=== PATIENT | female | born 1950 | race Caucasian/White ===

== ENCOUNTER → 2020-08-07 09:22 | Outpatient (CLI) | payer MEDICARE, OTHER, SELFPAY ==
[2020-08-07 13:00] LABS: Coronavirus 19 IgG Antibody Negative (Negative); Coronavirus 19 IgM Antibody Negative (Negative)
== END ==
PROVIDERS: Visit Provider Internal Medicine Gastroenterology
DX: Z01.818 Encounter for other preprocedural examination (principal); Z12.11 Encounter for screening for malignant neoplasm of colon
CPT/HCPCS: 36415; 86328

== ENCOUNTER 2020-08-08 08:54 | Day surgery (SDC) | payer MEDICARE, OTHER, SELFPAY ==
[2020-08-01 10:05] VITALS: BMI 21.7
[2020-08-08] VITALS (9 sets, daily range): BP systolic 77–136; BP diastolic 42–86; PULSE 63–86; RESP 16–20; TEMP 36.1–36.7; O2SAT 96–100
--- NOTE | 2020-08-08 10:17 | P.PN_ITS ---
[facility] Anesthesia Checklist - Patient Identification Patient Identification: Arm Band, Verbal (Name & ) - Structural Data Admitted From: Home Planned Operative Procedure/s: Colonoscopy Consent for Planned Operative Procedure(s) Verified: Yes Verified Documents: Surgical Consent, History and Physical - Chart Verification Results Verified: None - Additional verifications Anesthesia Reactions: No - Airway Assessment C-Spine Mobility Assessed: Yes TMJ Mobility Assessed: Yes Dentition: Good Dentition - Neurological Assessment Level of Consciousness: Awake, Alert, Appropriate, Follows Commands Hx Seizures: No Numbness or tingling in extremities: No - Anesthesia Plan Anesthesia Risk discussed: Yes Anesthesia Plan: Verified ASA Class: I Anesthesia Type: MAC [facility] History I have reviewed the patient's past medical history: Yes Medical History: Denies:: Cancer, Diabetes Mellitus Type 1, Diabetes Mellitus Type 2, Internal Pacemaker, MRSA, Seizures *Have you ever received a pneumonia vaccine?: No *Have you received a flu vaccine this season?: No Anesthesia experience/problems:: None Laterality Cases: Bilateral: Tonsillectomy Other Surgeries: Yes: Tubal Ligation. No: Pacemaker Amputation: No Fractures: No - *Social History Last grade of school completed: Advanced degree Smoking Status: Never smoker Alcohol Intake: current Alcohol Intake Frequency:: holidays/special occasions only Substance Use Type: denies use *Occupational Status:: employed, retired Housing: house Household Members: spouse *Travel in the last 8 weeks: None Family Hx:: Other (NA)
--- NOTE | 2020-08-08 10:47 | P.PCN_ITS ---
[facility] Procedure Note Procedure Note:: Colonoscopy Procedure Report: Colonoscopy with cold snare polypectomy Endoscopist: Yves Sousa II, MD Referring physician: Jean Marie Dueñas MD Date of Procedure: August 08, 2020 Equipment: Olympus 180 variable stiffness pediatric colonoscope Sedation: MAC sedation Indication: Mrs. Mills is a 70-year-old female who is here for follow-up high risk screening/surveillance colonoscopy. She does state that her maternal grandmother and all of her mother's siblings (patient's paternal uncles and aunts) had colon cancer. The patient has had 5 or 6 prior colonoscopies and her last colonoscopy was July 2015 at which time 2 diminutive polyps (tubular adenoma x2) were removed. She reports no abdominal pain, weight loss, change in her bowel habits or rectal bleeding. She does have a wheat intolerance. Procedure: Prior to the procedure, a history and physical exam was performed, and patient's medications and allergies were reviewed. The risks, benefits and alternatives of the sedation and procedure were discussed with the patient. All questions were answered and informed consent was obtained. The patient was brought to the procedure room. Patient identification and proposed procedure were verified by the physician and the nurse. The patient was placed in a left lateral decubitus position and the scope was passed under direct vision. Throughout the procedure, the patient's blood pressure, pulse, and oxygen saturations were monitored continuously. The colonoscopy was accomplished without difficulty. The patient tolerated the procedure well. Findings: On digital rectal examination there was normal rectal tone. There were no external hemorrhoids. The colonoscope was introduced through the anal canal to the rectum and advanced to the cecum. The ileocecal valve and appendiceal orifice were identified. The scope was advanced a short distance into the ileum which appeared grossly normal. The scope was then withdrawn into the colon. There was mild extrinsic compression at the appendix. The remainder of the cecum was normal. There were 2 diminutive polyps in the ascending colon (both 3 mm polyps) which were removed via cold snare polypectomy. The remainder of the transverse, descending, sigmoid and rectum were normal. Upon retroflexion within the rectum there were grade 2 internal hemorrhoids.The preparation was excellent throughout with [place] Preparation Score of 9. The cecal time was 12 minutes. Impression: 1. Diminutive colonic polyps x2 2. Grade 2 internal hemorrhoids Plan: Based upon the patient's family history and history of colon polyps, I would continue surveillance at a 5-year interval. I would encourage bulk fiber supplementation on a long-term daily maintenance basis.
== END 2020-08-08 11:45 | disposition home or self-care (01) ==
LOC: OUTP 08:56
PROVIDERS: PCP Internal Medicine; Visit Provider Internal Medicine Gastroenterology
PROC: 0DJD8ZZ Inspection of Lower Intestinal Tract, Via Natural or Artificial Opening Endoscopic (ICD-10-PCS; CPT 45378; principal; 2020-08-08 10:00)
DX: Z12.11 Encounter for screening for malignant neoplasm of colon (principal); Z86.010 Personal history of colon polyps; K63.5 Polyp of colon; K64.1 Second degree hemorrhoids; Z90.89 Acquired absence of other organs; Z79.890 Hormone replacement therapy
CPT/HCPCS: 45385; 88305

== ENCOUNTER → 2022-06-08 10:37 | Outpatient (CLI) | payer MEDICARE, OTHER, SELFPAY ==
--- NOTE | 2022-06-08 10:43 | MM_ITS ---
PROCEDURE INFORMATION: Exam: Bilateral Screening 3D Mammography Exam date and time: 06/08/2022 10:37 AM Age: 72 years old Clinical indication: Screening examination TECHNIQUE: Imaging protocol: Bilateral Screening tomosynthesis and 2D mammography including computer-aided detection (CAD) when performed. COMPARISON: MY Digital Screen BILAT 05/27/2021 3:10 PM FINDINGS: MAMMOGRAPHY: Breast composition: The breast tissue is extremely dense, which lowers the sensitivity of mammography. Mass: None. Architectural distortion: No new or suspicious architectural distortion. Calcifications: Stable benign-appearing calcifications are present. No new or suspicious cluster of microcalcifications have developed. Asymmetric density: No new or suspicious asymmetric density is present Skin thickening: None. Axillary adenopathy: None. IMPRESSION: No mammographic evidence of malignancy. Recommend annual screening mammography unless otherwise clinically indicated. ASSESSMENT: BI-RADS category 2: Benign
== END ==
PROVIDERS: PCP Internal Medicine; Visit Provider Obstetrics & Gynecology
DX: Z12.31 Encounter for screening mammogram for malignant neoplasm of breast (principal)
CPT/HCPCS: 77063; 77067

== ENCOUNTER → 2022-11-23 14:54 | Outpatient (CLI) | payer MEDICARE, OTHER, SELFPAY | PROVIDERS: PCP Internal Medicine; Visit Provider Internal Medicine | DX: J09.X2 Influenza due to identified novel influenza A virus with other respiratory manifestations (principal) | CPT/HCPCS: 87275; 87276; C9803; U0003; U0005 ==

== ENCOUNTER → 2022-12-20 12:34 | Outpatient (CLI) | payer MEDICARE, OTHER, SELFPAY ==
[2022-12-20 15:20] LABS: Basophils # 0.1 K/mm3 (0-0.2); Basophils % 1.7 % (0.1-2.0); Eosinophils # 0.2 K/mm3 (0.0-0.4); Eosinophils % 3.2 % (0.1-12.0); Hematocrit 48.2 % (37.0-47.0); Hemoglobin 15.2 g/dL (12.2-16.2); Lymphocytes # 1.2 K/mm3 (0.7-4.5); Lymphocytes % 25.7 % (10-50); Mean Corpuscular HGB Conc 31.5 g/dL (31.8-35.4); Mean Corpuscular Hemoglobin 29.9 pg (27.0-31.2); Mean Corpuscular Volume 94.9 fl (81-99); Mean Platelet Volume 8.2 fl (7.4-10.4); Monocytes # 0.3 K/mm3 (0.1-1.0); Monocytes % 7.5 % (1.7-9.3); Neutrophils # 2.8 K/mm3 (1.8-7.8); Platelet Count 235 K/mm3 (142-424); Red Blood Count 5.08 M/mm3 (4.20-5.40); Red Cell Distribution Width 13.7 % (11.5-17.5); White Blood Count 4.6 K/mm3 (4.8-10.8)
[2022-12-20 16:03] LABS: Chloride 102 mmol/L (98-107); Potassium 4.2 mmoL/L (3.5-5.1); Sodium 138 mmol/L (136-145)
[2022-12-20 16:05] LABS: Blood Urea Nitrogen 16 mg/dl (7-17); Estimated Glomerular Filt Rate 82 ml/min (>60); GFR (African American) 100 ML/MIN (>60)
[2022-12-20 16:06] LABS: Alanine Aminotransferase 16 U/L (12-78); Albumin Level 4.6 g/dl (3.5-5.0); Albumin/Globulin Ratio 1.6 (1.1-1.8); Alkaline Phosphatase 65 U/L (38-126); Anion Gap 12.2 mEq/L (5-15); Aspartate Amino Transferase 28 U/L (14-36); Bilirubin,Total 0.6 mg/dl (0.2-1.3); Calcium 9.3 mg/dl (8.4-10.2); Carbon Dioxide 28 mmol/L (22.0-30.0); Chol/HDL Ratio 2.4 (1-3.5); Cholesterol 224 mg/dl (140-200); Globulin 2.9 g/dL (1.3-3.2); Glucose 87 mg/dl (74-100); HDL Cholesterol 92 mg/dl (40-60); Total Protein,Serum 7.5 g/dl (6.3-8.2); Triglycerides 73 mg/dl (30-150); VLDL Cholesterol 15 mg/dL (0-40)
[2022-12-20 16:17] LABS: Direct LDL Cholesterol 91.21 mg/dL (100-129)
== END ==
PROVIDERS: PCP Internal Medicine; Visit Provider Internal Medicine
DX: R53.83 Other fatigue (principal); R05.9 Cough, unspecified; E53.8 Deficiency of other specified B group vitamins; E78.5 Hyperlipidemia, unspecified
CPT/HCPCS: 80053; 80061; 85025

== ENCOUNTER → 2023-08-26 09:13 | Outpatient (CLI) | payer MEDICARE, OTHER, SELFPAY ==
--- NOTE | 2023-08-26 09:26 | XR_ITS ---
FINAL REPORT CLINICAL HISTORY: POST MENOPAUSAL FINDINGS: Using L1-4, the bone mineral density of the spine is 1.061 g/cm2, corresponding to T-score of 0.1. This is within the normal range. Using the left hip, the bone mineral density of the femoral neck is 0.852 g/cm2, corresponding to a T-score of 0.0. This is within the normal range. Using the right hip: The bone mineral density of the femoral neck is 0.754 g/cm2, corresponding to a T-score of -0.9. This is within the normal range. IMPRESSION: Normal bone mineral density of the lumbar spine and hips. NOTE: T-score: Standard deviation compared with peak bone mass of young adult mean. *Following the recommendations of the International Society of Bone densitometry, classification of hip BMD is based on the lower of two T-scores; total hip or femoral neck. Reviewed, Interpreted and Dictated by Maxi Ward III, MD Transcribed by Mayela Samuel Authenticated and [facility]
--- NOTE | 2023-08-26 09:26 | MM_ITS ---
PROCEDURE INFORMATION: Exam: MG Bilateral Screening 3D Mammography Exam date and time: 08/26/2023 9:23 AM Age: 73 years old Clinical indication: Screening examination; No personal or family history of breast cancer TECHNIQUE: Imaging protocol: Bilateral Screening tomosynthesis and 2D mammography including computer-aided detection (CAD) when performed. COMPARISON: 1. MG MM DIG SCREENING MAMM BI W/CAD 06/08/2022 10:37 AM 2. MG MY Digital Screen BILAT 05/27/2021 3:10 PM FINDINGS: MAMMOGRAPHY: Breast composition: The breasts are extremely dense, which lowers the sensitivity of mammography. Mass: None. Architectural distortion: None. Calcifications: No suspicious calcifications. Asymmetric density: None. Skin thickening: None. Axillary adenopathy: None. IMPRESSION: No mammographic evidence of malignancy. Annual screening is recommended unless otherwise clinically indicated. ASSESSMENT: BI-RADS Category 1: Negative
== END ==
PROVIDERS: PCP Internal Medicine; Visit Provider Obstetrics & Gynecology
DX: Z12.31 Encounter for screening mammogram for malignant neoplasm of breast (principal); Z78.0 Asymptomatic menopausal state
CPT/HCPCS: 77063; 77067; 77080

== ENCOUNTER 2024-08-29 16:13 | Outpatient (CLI) | payer MEDICARE, OTHER, SELFPAY ==
--- NOTE | 2024-08-29 16:16 | MM_ITS ---
PROCEDURE INFORMATION: Exam: MG Bilateral Screening 3D Mammography Exam date and time: 08/29/2024 4:01 PM Age: 74 years old Clinical indication: Screening examination TECHNIQUE: Imaging protocol: Bilateral Screening tomosynthesis and 2D mammography including computer-aided detection (CAD) when performed. COMPARISON: 1. MG MM DIG SCREENING MAMM BI W/CAD 08/26/2023 9:23 AM 2. MG MM DIG SCREENING MAMM BI W/CAD 06/08/2022 10:37 AM FINDINGS: MAMMOGRAPHY: Breast composition: The breasts are extremely dense, which lowers the sensitivity of mammography. Mass: None. Architectural distortion: None. Calcifications: No suspicious calcifications. Asymmetric density: None. Skin thickening: None. Axillary adenopathy: None. IMPRESSION: No mammographic evidence of malignancy. Annual screening is recommended unless otherwise clinically indicated. ASSESSMENT: BI-RADS Category 1: Negative.
== END 2024-08-29 23:59 | disposition home or self-care (01) ==
LOC: RAD 16:14
PROVIDERS: PCP Internal Medicine; Visit Provider Nurse Practitioner Family
DX: Z12.31 Encounter for screening mammogram for malignant neoplasm of breast (principal)
CPT/HCPCS: 77063; 77067

== ENCOUNTER 2025-08-08 06:14 | Day surgery (SDC) | payer MEDICARE, OTHER, SELFPAY ==
[2025-07-31 15:14] VITALS: BMI 22.6
--- NOTE | 2025-08-06 11:36 | EXP.HP ---
History of Present Illness *Admission Date: 08/08/25 *Reason for visit:: Personal history of adenomatous colon polyps and family history *History of present illness: Mrs. Mills is a 75-year-old female who is here for screening/surveillance colonoscopy secondary to a personal history of adenomatous colon polyps and family history of colon cancer. The patient did have a colonoscopy with in in July 2015 and had 2 benign polyps (tubular adenomas x 2) which were removed. Her last colonoscopy with in in July 2020 revealed 2 new polyps (tubular adenoma x 1 and small serrated adenoma x 1) which were removed. She has had 6 or 7 prior colonoscopies. She does state that her maternal grandmother and all of her mother's siblings (maternal uncles and aunts) had colon cancer. The examination is deemed medically necessary for screening/surveillance colonoscopy. The patient has been seen, interviewed and examined prior to the procedure by both myself and the anesthesia provider. [facility] Disclaimer: The information contained in this section may have been updated after the patient was seen, as this information can be updated by other users. Medical History Fracture of coccyx Surgical History H/O tubal ligation Hx of tonsillectomy Family History Father Family history of myocardial infarction Mother Family history of diabetes mellitus type II Other Colon cancer Social History (Updated 08/08/25 @ 07:14 by Tessy Lanza RN) Smoking Status: Never smoker alcohol intake: never substance use type: denies use current occupational status: retired Travel in the last 8 weeks?: Inside the [place] household members: spouse housing: house current occupation: self-employed caffeine: Yes Have you lived/traveled outside US in past 30 days?: No Contact w/someone who lives/traveled outside US past 30 days?: No Exposure to someone with infectious disease in past 14 days?: No Do you have a fever (greater than 100.4 F or 38 C)?: No Have you tested positive for COVID-19?: No Exposed to someone with COVID-19 in past 14 days?: No Do you have a sore throat?: No Do you have a cough?: No Do you have any weakness?: No Are you experiencing any nausea/vomitting?: No Do you have any diarrhea?: No Are you experiencing any unusual bleeding?: No Do you have any muscle aches/pain?: No Do you have any abdominal pain?: No Are you experiencing loss of taste or smell?: No Other Medical History Have you received the Flu Vaccine for this season: No Have you received the Pneumonia Vaccine: No Review of Systems Review of Systems Review of systems (narrative): Negative *Cardiovascular Comments: Negative *Gastrointestinal Comments: Negative *Genitourinary Comments: Negative *Musculoskeletal Comments: Negative *Neurologic Comments: Negative Meds Home Medications and Allergies Home Medications ?Medication ?Instructions ?Recorded ?Confirmed ?Type estradiol 0.5 mg tablet 0.5 mg PO DAILY hormone 08/01/20 08/08/25 History progesterone micronized 100 mg 100 mg PO DAILY hormone 08/01/20 07/31/25 History capsule testosterone 1.62 % (20.25 mg/1.25 1.25 gm TD DAILY hormone 08/01/20 08/08/25 History gram) transdermal gel packet sodium,potassium,mag sulfates 17.5 See Rx Instructions PO .COMPLEX 07/25/25 Rx gram-3.13 gram-1.6 gram oral soln #354 mL (Suprep Bowel Prep Kit) cholecalciferol (vitamin D3) 10 10 mcg PO DAILY 07/31/25 07/31/25 History mcg (400 unit) tablet (Vitamin D3) folic acid 1 mg tablet 1 mg PO DAILY 07/31/25 08/08/25 History multivitamin 1 cap PO DAILY 07/31/25 08/08/25 History omega-3 fatty acids 1,000 mg PO DAILY 07/31/25 07/31/25 History turmeric 400 mg capsule 400 mg PO DAILY 07/31/25 07/31/25 History New Prescriptions to Start Prescriptions: Allergies Allergy/AdvReac Type Severity Reaction Status Date / Time milk Allergy Intermediate Congested Verified 08/08/25 07:12 wheat Allergy Intermediate stomach Verified 08/08/25 07:12 Exam *Routine HEENT Exam Head: Present normocephalic Eye: Present EOMI and PERRL ENT: Present mucous membranes moist *Routine Neck Exam Neck: Present supple *Routine Respiratory Exam Respiratory: Present CTA bilaterally *Routine Cardiovascular Exam Cardiovascular: Present RRR *Routine Abdominal Exam Abdominal: Present soft and normoactive bowel sounds; Absent tenderness *Routine Rectal Exam Rectal:: deferred *Routine Genitalia Exam Genitalia:: deferred *Routine Extremities Exam Extremities: Absent cyanosis, clubbing or edema *Routine Skin Exam Skin: Present warm; Absent rash *Routine Neurological Exam Neurological: Present alert and oriented X3 Assessment and Plan *Assessment and plan (1) Personal history of adenomatous and serrated colon polyps: Status: Acute Category: Medical Code(s): Z86.0101 - Personal history of adenomatous and serrated colon polyps (2) Family history of colon cancer: Status: Acute Category: Medical Code(s): Z80.0 - Family history of malignant neoplasm of digestive organs (3) Colon cancer screening: Status: Acute Category: Medical Code(s): Z12.11 - Encounter for screening for malignant neoplasm of colon Plan A/P: 1. Personal history of adenomatous colon polyps and family history of colon cancer is the preprocedural diagnosis. The patient will be anesthetized/sedated using MAC sedation. The patient has been seen and examined. Cardiac and lung assessment prior to the examination is stable. Proceed with planned screening/surveillance colonoscopy.
[2025-08-08 07:10] VITALS: BP 134/82; PULSE 81; RESP 16; TEMP 36.4; O2SAT 98
--- NOTE | 2025-08-08 07:13 | HMH.PROCNOTE ---
[facility] Procedure Note Date: 08/08/25 Time: 07:56 Procedure Note:: Colonoscopy Procedure Report: Colonoscopy Endoscopist: Yves Sousa II, MD Referring physician: Jean Marie Dueñas MD Date of Procedure: August 08, 2025 Equipment: Olympus [id number] adult colonoscope Sedation: MAC sedation Indication: Mrs. Mills is a 75-year-old female who is here for screening/surveillance colonoscopy secondary to a personal history of adenomatous colon polyps and family history of colon cancer. The patient did have a colonoscopy with me in July 2015 and had 2 benign polyps (tubular adenomas x 2) which were removed. Her last colonoscopy with me in July 2020 revealed 2 new polyps (tubular adenoma x 1 and small serrated adenoma x 1) which were removed. She has had 6 or 7 prior colonoscopies. She does state that her maternal grandmother and all of her mother's siblings (maternal uncles and aunts) had colon cancer. The patient reports no abdominal pain, weight loss, change in her bowel habits or rectal bleeding. The examination is deemed medically necessary for screening/surveillance colonoscopy. Procedure: Prior to the procedure, a history and physical exam was performed, and patient's medications and allergies were reviewed. The risks, benefits and alternatives of the sedation and procedure were discussed with the patient. All questions were answered and informed consent was obtained. The patient was brought to the procedure room. Patient identification and proposed procedure were verified by the physician and the nurse. The patient was placed in a left lateral decubitus position and the scope was passed under direct vision. Throughout the procedure, the patient's blood pressure, pulse, and oxygen saturations were monitored continuously. The colonoscopy was accomplished without difficulty. The patient tolerated the procedure well. Findings: On digital rectal examination there was normal rectal tone. There were no external hemorrhoids. The colonoscope was introduced through the anal canal to the rectum and advanced to the cecum. The ileocecal valve and appendiceal orifice were identified. The scope was advanced a short distance into the ileum which appeared grossly normal. The scope was then withdrawn into the colon. The cecum, ascending and transverse colon and mucosa were grossly normal. There were scattered diverticuli throughout the descending and sigmoid colon (LEFT colon). The rectum itself was normal. Upon retroflexion within the rectum there were grade 1 internal hemorrhoids. The preparation was excellent throughout with [place] Preparation Score of 9. The cecal time was 12 minutes. Impression: 1. Extensive left-sided diverticulosis 2. Grade 1 internal hemorrhoids Plan: I would encourage psyllium bulking fiber supplementation. We will discuss whether further surveillance is warranted.
[2025-08-08] MEDS: LACTATED RINGERS 1000ML 1,000 ML 50 ML IV (07:26)
--- NOTE | 2025-08-08 07:54 | EXP.ANES.CKL ---
[facility] Disclaimer: The information contained in this section may have been updated after the patient was seen, as this information can be updated by other users. Medical History Fracture of coccyx Surgical History H/O tubal ligation Hx of tonsillectomy Family History Father Family history of myocardial infarction Mother Family history of diabetes mellitus type II Other Colon cancer Social History (Updated 08/08/25 @ 07:14 by Tessy Lanza RN) Smoking Status: Never smoker alcohol intake: never substance use type: denies use current occupational status: retired Travel in the last 8 weeks?: Inside the [place] household members: spouse housing: house current occupation: self-employed caffeine: Yes Have you lived/traveled outside [place] in past 30 days?: No Contact w/someone who lives/traveled outside [place] past 30 days?: No Exposure to someone with infectious disease in past 14 days?: No Do you have a fever (greater than 100.4 F or 38 C)?: No Have you tested positive for COVID-19?: No Exposed to someone with COVID-19 in past 14 days?: No Do you have a sore throat?: No Do you have a cough?: No Do you have any weakness?: No Are you experiencing any nausea/vomitting?: No Do you have any diarrhea?: No Are you experiencing any unusual bleeding?: No Do you have any muscle aches/pain?: No Do you have any abdominal pain?: No Are you experiencing loss of taste or smell?: No [facility] Anesthesia Checklist Patient Identification Patient Identification: Verbal (Name & ) Structural Data Admitted From: Home Planned Operative Procedure/s: colonoscopy Consent for Planned Operative Procedure(s) Verified: Yes NPO Status Verified Time NPO: 00:00 Additional verifications Anesthesia Reactions: No Airway Assessment Mallampati Score:: Class II C-Spine Mobility Assessed: Yes TMJ Mobility Assessed: Yes Dentition: Good Dentition Neurological Assessment Level of Consciousness: Awake, Alert and Appropriate Anesthesia Plan Anesthesia Risk discussed: Yes Anesthesia Plan: Verified ASA Class: II Anesthesia Type: MAC
[2025-08-08 07:57] VITALS: BP 98/61; PULSE 82; RESP 16; TEMP 36.1; O2SAT 94
[2025-08-08 08:07] VITALS: BP 95/51; PULSE 75; RESP 16; TEMP 36.1; O2SAT 96
[2025-08-08 08:17] VITALS: BP 116/66; PULSE 76; RESP 16; O2SAT 95
[2025-08-08 08:27] VITALS: BP 114/65; PULSE 72; RESP 16; TEMP 36.1; O2SAT 96
== END 2025-08-08 08:45 | disposition home or self-care (01) ==
PROVIDERS: PCP Internal Medicine; Visit Provider Internal Medicine Gastroenterology
PROC: 0DJD8ZZ Inspection of Lower Intestinal Tract, Via Natural or Artificial Opening Endoscopic (ICD-10-PCS; CPT 45378; principal; 2025-08-08 08:00)
DX: Z12.11 Encounter for screening for malignant neoplasm of colon (principal); K57.30 Diverticulosis of large intestine without perforation or abscess without bleeding; K64.0 First degree hemorrhoids; Z86.0101 Personal history of adenomatous and serrated colon polyps; Z80.0 Family history of malignant neoplasm of digestive organs
CPT/HCPCS: 45378; J2003; J2704; J7120

== ENCOUNTER 2025-09-04 14:33 | Outpatient (CLI) | payer MEDICARE, OTHER, SELFPAY ==
--- NOTE | 2025-09-04 14:37 | MM_ITS ---
PROCEDURE INFORMATION: Exam: MG Bilateral Screening 3D Mammography Exam date and time: 09/04/2025 2:52 PM Age: 75 years old Clinical indication: Screening examination TECHNIQUE: Imaging protocol: Bilateral Screening tomosynthesis and 2D mammography including computer-aided detection (CAD) when performed. COMPARISON: 1. MG MM DIG SCREENING MAMM BI W/CAD 08/29/2024 4:01 PM 2. MG MM DIG SCREENING MAMM BI W/CAD 08/26/2023 9:23 AM FINDINGS: MAMMOGRAPHY: Breast composition: The breasts are extremely dense, which lowers the sensitivity of mammography. Mass: None. Architectural distortion: None. Calcifications: No suspicious calcifications. Asymmetric density: None. Skin thickening: None. Axillary adenopathy: None. IMPRESSION: No mammographic evidence of malignancy. Annual screening is recommended unless otherwise clinically indicated. ASSESSMENT: BI-RADS Category 1: Negative.
--- OUTSIDE RECORDS SUMMARY | 2025-09-04 14:40 | XMS_ITS | Continuity of Care Document ---
Author Organization [facility] Brooke EBONI Almaguer [place] Address [address] [place] [address] Assessment No assessment recorded. Plan of Treatment Reminders Order Date Submit Date Provider Last Modified By Organization Details Last Modified Time Details Appointments ANNUAL DIRECTOR OF FUNDRAISING 2025 01:15P M DR MICHELL MILNER Not available Not available Not available Lab None recorded. Referral None recorded. Procedures None recorded. Surgeries None recorded. Imaging MAMMO, screening , tomosynth esis, bilateral , w/ CAD 2024 025 [facility] (Scheduling), [address], [place], [address], 08/22/2025 09:45:13 Medication Orders estradiol 0.01% (0.1 mg/gram) vaginal cream 2024 025 [facility] [place], [address], 08/21/2025 14:42:20 estradiol 0.05 mg/24 hr semiweekl y transderm al patch 2024 025 [facility], [address] [place], [address], 08/21/2025 17:08:14 Prometriu m 100 mg capsule 2024 025 [facility], [address] [place], [address], 08/21/2025 17:08:15 compounde d medicatio n 2024 025 [facility], [facility] [address] [place], [address], 08/22/2025 09:51:16 Patient TargetsNo targets recorded. Patient InstructionsNo instructions recorded. Reason for Referral None Reported. Problems Name Problem SNOMED Code Status Onset Date Resolution Date Notes Provider Name and Address Organization Details Recorded Time Menopause present 034394777 Active 2015 From Automated Load;Provi pari: Beiting, Estrella;S tatus: Active Not Available [facility] 09:57:30 Problem Notes None recorded. Procedures Surgical History Date Name Laterality Status Provider Name and Address Organization Details Recorded Time 02/21/20 25 Biopsy Endometrial completed CASSY POPE , DO [address] [place], [address], [facility] 02/20/2025 18:23:42 02/21/20 25 Cervical Polypectomy completed CASSY POPE , DO [address] [place], [address], [facility] 02/20/2025 18:24:46 08/29/20 24 Date of Last Mammogram completed Nichole Montanez [facility] 08/21/2025 13:10:46 08/18/20 23 Pap Smear collection completed JERALD CRISTOBAL, MAIL ORDER SORTER [address] [place], [address], [facility] 08/18/2023 09:28:53 08/18/20 23 Date of Last Pap Smear completed Priya Padron [facility] 08/17/2024 14:50:11 05/21/20 22 Most Recent Mammogram completed Torito Hanley [facility] 07/22/2022 14:03:32 08/21/20 20 Date of Last Colonoscopy completed CLEMENTINA TRAN PA-C [address] [place], [address], [facility] 05/27/2021 14:13:51 Tubal Ligation completed Alaina Goodwin Y [facility] 04/28/2017 13:54:34 Removal of tonsils completed Alaina DOUGHERTY [facility] 04/28/2017 13:54:41 Imaging Results None recorded. Procedure Notes None recorded. Medical Equipment None Reported. Allergies Allergen ID Allergen Name Allergen Category Reaction Reaction Severity Criticality Documentation Date Start Date Code Code System Note Provider Name and Address Organization Details Recorded Time 897439 amoxicill in trihydrat e medicatio n rash Not available Not available 10/15/20162014 28814 8 RxNorm React ion: RASH; Comme nt: Creat ed By: Varinder Frank mahnaz Date: 015 1:55: 57 PM; Not Available [facility] 6 08:03:48 Medications Name Sig Start Date Stop Date Status Note LastModified by Organization Details LastModified Time Compound Testoster one Topical 0.05% (0.25 mg/0.5 mL) use one dose to skin 3 x weekly. not use on inner arm 2022 active Not Available Not Available Not Avai lable compounde d medicatio n active Not Available Not Available Not Available Compound Testoster one Topical 0.05% (0.25 mg/0.5 mL) use one dose to skin 3 x weekly. not use on inner arm 2021 active Not Available Not Available Not Avai lable Compound Testoster one Topical 0.05% (0.25 mg/0.5 mL) use one dose to skin 3 x weekly. not use on inner arm 2018 active Not Available Not Available Not Avai lable compounde d medicatio n APPLY 1 PUMP TO SKIN ON INNER ARM 3 TIMES A WEEK active Not Available Not Available No t Available Compound Testoster one Topical 0.05% (0.25 mg/0.5 mL) use one dose to skin 3 x weekly. not use on inner arm 2017 active Not Available Not Available Not Avai lable Compound Testoster one Topical 0.05% (0.25 mg/0.5 mL) use one dose to skin 3 x weekly. not use on inner arm active Not Available Not Available No t Available compounde d medicatio n Use one dose on skin 3x weekly 2024 active Not Available Not Available Not Avai lable Compound Testoster one Topical 0.05% (0.25 mg/0.5 mL) use one dose to skin 3 x weekly. not use on inner arm 2018 active Not Available Not Available Not Avai lable Compound Testoster one Topical 0.05% (0.25 mg/0.5 mL) use one dose to skin 3 x weekly. not use on inner arm 2022 active Not Available Not Available Not Avai lable compounde d medicatio n Use one dose to skin 3 x weekly 2024 active Not Available Not Available Not Avai lable Compound Testoster one Topical 0.05% (0.25 mg/0.5 mL) use one dose to skin 3 x weekly. not use on inner arm 2019 active Not Available Not Available Not Avai lable compounde d medicatio n APPLY 1 PUMP TO SKIN ON INNER ARM 3 TIMES A WEEK 07/22 completed Not Available Not Available Not Available Compound Testoster one Topical 0.05% (0.25 mg/0.5 mL) use one dose to skin 3 x weekly. not use on inner arm active Not Available Not Available No t Available Compound Testoster one Topical 0.05% (0.25 mg/0.5 mL) use one dose to skin 3 x weekly. not use on inner arm 2017 active Not Available Not Available Not Avai lable Compound Testoster one Topical 0.05% (0.25 mg/0.5 mL) use one dose to skin 3 x weekly. not use on inner arm active Not Available Not Available No t Available Compound Testoster one Topical 0.05% (0.25 mg/0.5 mL) use one dose to skin 3 x weekly. not use on inner arm 2019 active Not Available Not Available Not Avai lable Compound Bi-Est Vaginal Cream Insert 1g vaginall y 2 nights per week 05/10 completed Not Available Not Available Not Available Compound Testoster one Topical 0.05% (0.25 mg/0.5 mL) use one dose to skin 3 x weekly. not use on inner arm active Not Available Not Available No t Available Multiple Vitamin capsule Daily active Duration : 30 days;Keaton quency: daily;Me dication Descript ion: multivit aragon; Dosage:1 ; Route:or al; refills: 3; Quantity :100 capsule Not Available Not Available Not Available medroxypr ogesteron e 2.5 mg tablet TAKE 1 TABLET BY MOUTH ONCE DAILY active Not Available Not Available No t Available Prometriu m 100 mg capsule Take 1 capsule every day by oral route for 30 days. 2024 active Not Available Not Available Not Avai lable estradiol 0.05 mg/24 hr semiweekl y transderm al patch Apply 1 patch twice a week by transder mal route. 2024 active RX went to [facility] , pt does not use that pharmacy , called and asked for a transfer to her local pharmacy Not Available Not Available Not Available erythromy lubna 5 mg/gram (0.5 %) eye ointment 08/18 completed Not Available Not Available Not Available misoprost ol 200 mcg tablet TAKE 1 TABLET BY MOUTH 8 HOURS PRIOR TO PROCEDUR E active Not Available Not Available No t Available estradiol 0.5 mg tablet Take 1 tablet every day by oral route for 90 days. 03/25 completed current on annual, awaited mammo report Negative on 08/29/24 not taking Not Available Not Available Not Available estradiol 0.01% (0.1 mg/gram) vaginal cream Place a pea sized amount on the external genitali a and 2/3 into vaginal canal nightly for 2 weeks and then 2x weekly 2024 active Not Available Not Available Not Avai lable testoster one apply to periclit oral area 3 x weekly for testoste edna suppleme ntation 05/10 completed Testoste edna Base in Aquaphor - Not Available Not Available Not Available vitamin B complex active Medicati on Descript ion: multivit aragon; refills: 0 Not Available Not Available Not Available [place]-3 active Medicati on Descript ion: omega-3 polyunsa turated fatty acids; Route:or al; refills: 0 Not Available Not Available Not Available Vitamin D3 active Medicati on Descript ion: cholecal ciferol; Route:or al; refills: 0 Not Available Not Available Not Available Versabase Cream 05/27 completed Not Available Not Available Not Available sodium,po tassium,m ag sulfates 17.5 gram-3.13 gram-1.6 gram oral soln DILUTE, DRINK FULL AMOUNT EARLY EVENING BEFORE AND NEXT MORNING AT LEAST 4-5 HRS BEFORE PROCEDUR E FOLLOW WITH 960ML OF WATER BY MOUTH active Not Available Not Available No t Available Revaree Plus 10 mg vaginal supposito ry Insert 1 supposit ory 3 times a week by vaginal route at bedtime. 2023 active Not Available Not Available Not Avai lable Vitals Date Recorded Body height Body mass index (BMI) Body weight Systolic And Diastolic Provider Name and Address Organization Details Last Updated DateTime 08/21/2025 167.64 cm 22.6 kg/m2 03662.93 g 116/64 mm[Hg] Nichole Montanez [facility] 08/21/2025 13:09:22 Social History Question Answer Notes LastModified by Citus Data Details LastModified Time Tobacco Smoking Status [facility] 13:54:19 How Many Years Have You Consumed Alcohol? 55 [email or web address] Information not available 08/21/2025 What Is Your Level Of Caffeine Consumption? Occasional [email or web address] Information not available 08/21/2025 What Is The Highest Grade Or Level Of School You Have Completed Or The Highest Degree You Have Received? [id number] [email or web address] Information not available 08/21/2025 Marital Status [email or web address] Informatio n not available 04/28/2017 What Was The Date Of Your Most Recent Tobacco Screening? 08/18/2023 [email or web address] Information not available 08/18/2023 What Is Your Relationship Status? [email or web address] Information not available 08/21/2025 Sex: Female Functional Status Question Answer Note LastModified by Citus Data Details LastModified Time How many times per week do you consume alcohol? Less than 1 time per week [email or web address] Information not available 08/21/2025 Do you use any illicit or recreational drugs? No [email or web address] Information not available 08/21/2025 What is your level of alcohol consumption? Occasional [email or web address] Information not available 08/21/2025 Mental Status None recorded. Family History Relationship Description Onset Age of this Age Resolved Age Notes LastModified by Organization Details LastModified Time Maternal Grandmother Family history of malignant neoplasm colon cancer [id number] Not available 04/28/2017 13:53:05 Maternal Grandmother Cerebrovascu lar accident [email or web address] Not available 11/2024 12:41:24 Maternal Grandmother Diabetes mellitus [email or web address] Not available 2024 12:41:24 Mother Heart disease CHF [email or web address] Not available 2024 12:41:24 Mother Diabetes mellitus [email or web address] Not available 2024 12:41:24 Father Myocardial infarction [email or web address] Not available 08/21 12:41:25 Maternal Grandfather Cerebrovascu lar accident [email or web address] Not available 11/2024 12:41:25 Paternal Grandfather Myocardial infarction [email or web address] Not available 08/21 12:41:25 Notes:5 maternal aunts and u ncles with colon cancer Medical History Condition Response Heart Problems N Other N Colon Cancer N Breast Cancer N Thyroid Problems N Depression N Lung Disease N Glaucoma N Anemia N Immune System Disorder N Anesthesia Complications N Heart Attack (NM) N Deep Vein Thrombosis N Diabetes N Bleeding Disorder N Arthritis Y Seizures/Epilepsy N AIDS/HIV N Hyperlipidemia N Cancer N Stroke N Varicosities Y Asthma N Hoarseness N Shortness of Breath N Sleep Apnea N High Cholesterol N Hepatitis N Liver Disease N Headaches N Hypertension N Chicken Pox Y Kidney Disease N Gynecological History Statement/Question Response Abnormal Pap N Date of Last Mammogram 08/29/2024 First day of last menstrual period 04/09 STIs/STDs N HPV Vaccine N Most Recent Mammogram 05/21/2022 Age at Menarche 12 Current Control Method Menopause If Post Menopausal, Age at Menopause 55 Painful Periods N Date of Last Colonoscopy 08/21/2020 Number of pregnancies - full term 3 Number of pregnancies - total living 3 Sexually Active? Y # of Miscarriages 0 Menses Monthly N Ovarian Cancer Screening Date 01/07/2017 Number of abortions 0 Date of Last Pap Smear 08/18/2023 Number of pregnancies- ectopic 0 Obstetrics History GPAL:G 3 P 3 0 0 0 Type Value Full Term 3 Total 3 Immunizations Vaccine Type Date Status Note Provider Nam e and Address Organization Details Recorded Time Td (adult), 2 Lf tetanus toxoid, preservative free, adsorbed 7 completed Not Available [facility] 08/21/2025 12:41:53 COVID-19, mRNA, LNP-S, PF, 100 mcg/0.5mL dose or 50 mcg/0.25mL dose 1 completed Not Available [facility] 08/21/2025 12:41:53 COVID-19, mRNA, LNP-S, PF, 100 mcg/0.5mL dose or 50 mcg/0.25mL dose 1 completed Not Available [facility] 08/21/2025 12:41:53 Past Encounters Encounter ID Performer Location Encounter Start Date Encounter Closed Date Diagnosis/Indication Diagnosis SNOMED-CT Code Diagnosis ICD10 Code Diagnosis IMO Codes Diagnosis Note [id number] CASSY PIKE, DO [facility] [address] [place] [address] 08/21/2025 12:41:23 08/21/2025 13:48:10 Atrophic vaginitis 39635270 N95.2 Pt reports improvemen t and would like to continue. Refills sent History of hormone replacement (HRT) 135812952 Z79.890 Reports she is doing well with the change to transderma l estrogen and change in type and dose of progestero ne. Pt is aware that our desired timeline for HRT use is 10 years, but pt desires to continue. Pt aware of r/b/a Reduced libido 1324303 R 68.82 [id number] Gynecologi c examination 12455545 Z01.419 954639 Pap smear no longer indicatedD eclines STI screenMamm o orderedDEX A UTDRTO 1 yr WWE Screening mammography 24 148677 Z12.31 [id number] Health Concerns Section Related Observation LastModified by Organization Detai ls LastModified Time None Recorded Concern Status LastModified by Organization Details LastModified Time None Recorded Payers Encounter Date Sequence Insurance Name Policy Number Policy Harrington Covered Member ID Harrington Member ID Guarantor Name 08/21/2025 1 [place] [id number] [place] 08/21/2025 2 [employer] (MEDICARE SUPPLEMENT) [place] [id number] [place] Notes Date Note Type Note Provider Name and Address Organization Details Recorded Time 08/21/2025 text/html ROS as noted in the HPI Patient is in office today for annual exam. she denies fever, chills, nausea, vomiting, SOB, CP, hematuria, dysuria, problems with intercourse, hot flashes, night sweats, vaginal dryness on ROS. No bleeding, spotting, or discharge noted. Estrogen replacement therapy: transdermal Last Pap smear/HPV testin NILM HPV neg History of abnormal Pap smear: no Last mammogram: 2023 at [facility] Last Colonoscopy: HUGHD DEXLaura at outside hospital PMH: reviewed PSH: reviewed allergies and meds reviewed CASSY POPE , DO [address] [place], [address], [facility] 08/21/2025 17:13:10 OBGyn Episode No OBEpisode recorded.
--- OUTSIDE RECORDS SUMMARY | 2025-09-04 14:41 | XMS_ITS | Data Portability ---
Author Organization [facility] ONEIDA Almaguer [place] Address [address] [place] [address] Assessment No assessment recorded. Plan of Treatment Reminders Order Date Submit Date Provider Last Modified By Organization Details Last Modified Time Details Appointments ANNUAL CREATIVE ARTS THERAPIST 2025 01:15P M DR MICHELL MILNER Not available Not available Not available Lab surgical pathology study 2024 025 [facility], [facility] [place], [address], 02/22/2025 12:50:59 Referral None recorded. Procedures None recorded. Surgeries None recorded. Imaging MAMMO, screening , tomosynth esis, bilateral , w/ CAD 2024 025 [facility] (Scheduling), [address], [place], [address], 08/22/2025 09:45:13 MAMMO, screening , tomosynth esis, bilateral , w/ CAD [address] (Scheduling), [address], [place], [address], 08/21/2024 10:57:12 Medication Orders estradiol 0.01% (0.1 mg/gram) vaginal cream 2024 025 [facility], [address], [place], [address], 08/21/2025 14:42:20 estradiol 0.05 mg/24 hr semiweekl y transderm al patch 2024 025 [facility], [address], [address], 08/21/2025 17:08:14 Prometriu m 100 mg capsule 2024 025 [facility], [address], [address], 08/21/2025 17:08:15 compounde d medicatio n 2024 025 [facility] [address] [place], [address], 08/22/2025 09:51:16 estradiol 0.01% (0.1 mg/gram) vaginal cream 2024 025 [facility], [address], [address], 03/25/2025 13:17:48 estradiol 0.01% (0.1 mg/gram) vaginal cream 2024 025 [facility], [address], [address], 02/20/2025 13:22:23 Prometriu m 100 mg capsule 2024 025 [facility], [address], [address], 02/20/2025 13:22:47 estradiol 0.05 mg/24 hr semiweekl y transderm al patch 2024 025 [facility] Mail [facility], [address], [place], [address], 02/20/2025 18:27:07 Cytotec 200 mcg tablet 2024 025 [facility], [address] [place], [address], 02/13/2025 11:27:48 Revaree Plus 10 mg vaginal supposito ry 2023 024 apenningto marielle [facility], [address] [place], [address], 08/20/2024 14:38:01 Patient TargetsNo targets recorded. Patient Instructions Encounter Date Encounter Id Patient Instructions Last Modified By Organization Details Last Modified Time 08/20/2024 [id number] medical record request* [email or web address] Not available 08/21/2024 10:12:01 Reason for Referral None Reported. Results Created Date Observation Date Name Description Value Unit Range Abnormal Flag Note LastModifiedBy Organization Detail LastModifiedTime 02/21/2002/20/2025 SURGI MELLISA surgical SEE BELOW normal Surgi mellisa Patho logy Repor breanne NAME: CASI CAMPOS PATH: [id number] DATE of : 03/26 2 Copy to: Diagn osis: A) Endom etria l biops y: Fragm ents of benig n endoc ervic al/lo wer uteri ne segme nt endom etria l polyp , detac hed inact bina surfa ce endom etriu m and benig n endoc ervic al tissu e Negat bina for cervi mellisa dyspl blaine, atypi mellisa endom etria l hyper plasi a and angi casi . B) Endom etria l polyp : Fragm ents of benig n endoc ervic al tissu e; negat bina for dyspl blaine. SOURC E OF SPECI MEN: ENDOM ETRIA L BIOPS Y ENDOM ETRIA L POLYP CLINI MELLISA INFOR MATIO N: R93.8 9 Gross Descr iptio n: A) Barrett nt name and date of verif ied. Recei brie in forma raysa label ed with the patie nt's name and desig nated endo metri al biops y are scant fragm ents of mccullough tissu e admix ed with mucus measu ring 1.5 x 1.5 x 0.2 cm in aggre gate. Entir garry submi tted in one casse tte label ed A1. B) Barrett nt name and date of verif ied. Recei brie in forma raysa label ed with the patie nt's name and desig nated as endo metri al polyp is a singl e 0.2 cm mccullough tissu e fragm ent admix ed with predo minan tly mucus and scant clott ed blood which have aggre gate dimen sions of 0.8 x 0.8 x 0.1 cm. The speci men is filte red and submi tted entir garry in a biops y bag in a singl e casse tte label ed B1. JAB 02/21 10:17 AM Micro scopi c Descr iptio n: A micro scopi c exami natio n has been perfo rmed and the resul t(s) are as noted above . VIANCA PARKER Logan MULLER-Mihir AGUDELO MD Christine d Out Date: 02/22 12:50 Page 1 of 1 Not Available [facility] [address] [place] [address], [place], [address], 02/22/2025 12:50:59 08/21/2008/26/2023 MAMMO , scree carlos a, tomos ynthe sis, bilat eral, w/ CAD No observ ation record ed[facility] [place] [address] (X-Ray) [address], [place], [address], 08/22/2024 14:31:53 08/21/20 24 06/08/2022 MAMMO , scree carlos a, tomos ynthe sis, bilat eral, w/ CAD No observ ation record ed. cbeiting [facility] [address], [place], [address], 08/21/2024 16:23:39 09/01/20 24 08/29/2024 MAMMO , scree carlos a, tomos ynthe sis, bilat eral, w/ CAD No observ ation record ed. [email or web address] [facility] [address], [place], [address], 09/05/2024 08:38:24 Result Notes None recorded. Problems Name Problem SNOMED Code Status Onset Date Resolution Date Notes Provider Name and Address Organization Details Recorded Time Menopause present 189443505 Active 2015 From Automated Load;Provi pari: Beiting, Estrella;S tatus: Active Not Available [facility] 6 09:57:30 Problem Notes None recorded. Procedures Surgical History Date Name Laterality Status Provider Name and Address Organization Details Recorded Time 02/21/20 25 Biopsy Endometrial completed CASSY POPE , DO [address] [place], [address], [facility] 02/20/2025 18:23:42 02/21/20 25 Cervical Polypectomy completed CASSY POPE , DO [address] [place], [address], [facility] 02/20/2025 18:24:46 08/29/20 24 Date of Last Mammogram completed Nichole Montanez [facility] 08/21/2025 13:10:46 08/18/20 23 Pap Smear collection completed JERALD CRISTOBAL APRN [address] [place], [address], [facility] 08/18/2023 09:28:53 08/18/20 23 Date of Last Pap Smear completed Priya Padron [facility] 08/17/2024 14:50:11 05/21/20 22 Most Recent Mammogram completed Torito Hanley [facility] 07/22/2022 14:03:32 08/21/20 20 Date of Last Colonoscopy completed CLEMENTINA TRAN PA-C [address] [place], [address], [facility] 05/27/2021 14:13:51 Tubal Ligation completed Alaina Goodwin [facility] 04/28/2017 13:54:34 Removal of tonsils completed Alaina Malloy [facility] 04/28/2017 13:54:41 Imaging Results None recorded. Procedure Notes None recorded. Medical Equipment None Reported. Allergies Allergen ID Allergen Name Allergen Category Reaction Reaction Severity Criticality Documentation Date Start Date Code Code System Note Provider Name and Address Organization Details Recorded Time 557002 amoxicill in trihydrat e medicatio n rash Not available Not available 10/15/20162014 78546 8 RxNorm React ion: RASH; Comme nt: Creat ed By: Varinder joya Date: 015 1:55: 57 PM; Not Available [facility] 6 08:03:48 Medications Name Sig Start Date [...] mal route. 2024 active RX went to [facility] , pt does not use that pharmacy [...] 0 Not Available Not Available Not Available Yaphank-3 active Medicati on Descript ion: omega-3 polyunsa [...] Avai lable Vitals Date Recorded Body height Provider Name an d Address Organization Details Last Updated DateTime 02/13/2025 167.64 cm Brandi [facility] 10:51:49 Date Recorded Body height Provider Name an d Address Organization Details Last Updated DateTime 02/20/2025 167.64 cm Brandi [facility] 12/2024 12:50:07 Date Recorded Body height Body mass index (BMI) Body weight Systolic And Diastolic Provider Name and Address Organization Details Last Updated DateTime 03/25/2025 167.64 cm 22.8 kg/m2 22696.52 g 112/64 mm[Hg] Brandi [facility] 03/25/2025 13:10:29 Date Recorded Body height Body mass index (BMI) Body weight Systolic And Diastolic Provider Name and Address Organization Details Last Updated DateTime 08/20/2024 167.64 cm 23.3 kg/m2 39214.1 g 114/72 mm[Hg] Priya [facility] 08/20/2024 14:01:18 Date Recorded Body height Body mass index (BMI) Body weight Systolic And Diastolic Provider Name and Address Organization Details Last Updated DateTime 08/21/2025 167.64 cm 22.6 kg/m2 43176.93 g 116/64 mm[Hg] Nichole Tarik [facility] 08/21/2025 13:09:22 Social History Question Answer Notes LastModified by Organizat ion Details LastModified Time Tobacco Smoking Status Never Smoker Alaina perez [facility] 04/28/2017 13:54:19 How Many Years Have You Consumed Alcohol? 55 [email or web address] Information not available 08/21/2025 What Is Your Level Of Caffeine Consumption? Occasional [email or web address] Information not available 08/21/2025 What Is The Highest Grade Or Level Of School You Have Completed Or The Highest Degree You Have Received? [id number] [email or web address] Information not available 08/21/2025 Marital Status [email or web address] Informatio n not available 04/28/2017 What Was The Date Of Your Most Recent Tobacco Screening? 08/18/2023 [email or web address] Information not available 08/18/2023 What Is Your Relationship Status? [email or web address] Information not available 08/21/2025 Sex: Female Functional Status Question Answer Note LastModified by Organizat ion Details LastModified Time How many times per [...] Family history of malignant neoplasm colon cancer [email or web address] Not available 04/28/2017 13:53:05 Maternal Grandmother Cerebrovascu [...] Disorder N Anesthesia Complications N Heart Attack (CA) N Deep Vein Thrombosis N Diabetes N [...] preservative free, adsorbed 7 completed Not Available [facility] 08/21/2025 12:41:53 COVID-19, mRNA, LNP-S, PF, 100 mcg/0.5mL dose or 50 mcg/0.25mL dose 1 completed Not Available [facility] 08/21/2025 12:41:53 COVID-19, mRNA, LNP-S, PF, 100 mcg/0.5mL dose or 50 mcg/0.25mL dose 1 completed Not Available [facility] 08/21/2025 12:41:53 Past Encounters Encounter ID Performer Location Encounter Start Date Encounter Closed Date Diagnosis/Indication Diagnosis SNOMED-CT Code Diagnosis ICD10 Code Diagnosis IMO Codes Diagnosis Note [id number] [facility] [address] 02/22/2017 08:01:51 02/22/2017 08:01:51 [id number] CLEMENTINA TRAN PA-C CREATIVE ARTS THERAPIST [facility] [address] [place] [address] 04/28/2017 13:40:26 04/28/2017 14:40:01 Atrophic vaginitis 56375111 N95.2 Routine gy necologic examination done 5949500981 9101 Z01.419 Screening for malignant neoplasm of cervix 116697264 Z12.4 [id number] CLEMENTINA TRAN PA-C CREATIVE ARTS THERAPIST [facility] [address] [place] [address] 05/10/2018 13:32:31 05/10/2018 14:17:31 Menopausal syndrome 763531412 N95.9 Hormone re placement therapy 003768071 Z79.720 [id number] CLEMENTINA TRAN PA-C CREATIVE ARTS THERAPIST [facility] [address] [place] [address] 05/11/2019 12:58:46 05/11/2019 14:50:58 Menopausal syndrome 113493344 N95.9 Routine gy necologic examination done 1673820812 9101 Z01.419 Screening for malignant neoplasm of cervix 355249311 Z12.4 [id number] CLEMENTINA TRAN PA-C CREATIVE ARTS THERAPIST [facility] [address] [place] [address] 05/13/2020 12:49:58 05/13/2020 13:50:30 Hormone replacement therapy 206567404 Z79.890 Menopausal syndrome 1237 [address] N95.9 [id number] CLEMENTINA TRAN PA-C CREATIVE ARTS THERAPIST [facility] [address] [place] [address] 05/27/2021 13:51:21 05/27/2021 14:34:51 Routine gynecologic examination done 8382407180 9101 Z01.419 Screening for malignant neoplasm of cervix 664391932 Z12.4 Hormone re placement therapy 423869613 Z79.890 [id number] HARLEY PETERSON [address] [place] [address] 07/22/2022 13:45:23 07/23/2022 07:44:40 Menopausal syndrome 867153761 N95.9 [id number] DILLON GASPAR [address] [place] [address] 08/18/2023 08:22:34 08/18/2023 09:19:15 Gynecologic examination 49467511 Z01.419 PAP todaywill contact patient with resultspat ient to follow up in one year or sooner as needed Screening for malignant neoplasm of cervix 060172032 Z12.4 Screening for malignant neoplasm of breast 270915196 Z12.39 per patient report routine screening in 2021 at [facility] obtain records for review Menopausal syndrome 1237 [address] N95.9 The risks, benefits and alternativ es of hormone replacemen t therapy were discussed with the patient, including but not limited to breast tenderness , irregular bleeding, heart disease, breast cancer, stroke, deep vein thrombosis and pulmonary embolism.p atient desires to continue with current regimenDr. Beiting to send in RX for compounded testostero ne to [facility] Menopausal and postmenopausal disorders 578631291 N95.9 routine screeningd exa ordered - patient to complete at [facility] [id number] JERALD CRISTOBAL APRN [facility] [address] [place] [address] 08/20/2024 13:50:37 08/20/2024 14:29:40 Gynecologic examination 74700412 Z01.419 PAP not indicated todaypatie nt to follow up in one year or sooner as needed Screening for malignant neoplasm of breast 253346976 Z12.39 per patient report - routine screening in 2022 at [facility] obtain records for revieworde r placed for repeat mammogram Hormone re placement therapy 862697671 Z79.890 patient reports that she is not out of medication currently but would need refillsadv ised patient that she will need current negative mammogram result prior to refills of HRTpatient to sign medical release form today and office will try to obtain records for reviewAdvi sed patient to call back to check if records received and will then send in refills for her. Vaginal dr thibodeaux on intercourse 717676493 N89.8 patient already using coconut oil with some reliefDisc ussed estradiol vaginal cream use or Revaree suppositor iesPatient interested in Revaree. - sample provided to patient with instructheydi hare and ordering informatio n. [id number] CASSY PIKE DO OBGYN [facility] [address] [place] [address] 02/13/2025 10:46:14 02/13/2025 11:28:42 Stenosis of cervix 73662763 N88.2 pretreatme nt for EMB Endometrium thickened 44 6083184 R93.89 Incidental finding on US 12mmNo VBDiscusse d that at measuremen ts >4mm in a PM EMB would be standard of carePt to RTO for EMB [id number] DO EBONI FARMER [place] [address] [place] [address] 02/20/2025 12:17:25 02/20/2025 13:29:02 Atrophic vaginitis 02914150 N95.2 History of hormone replacement (HRT) 465282626 Z79.890 Hx of po estradiol and medroxypro gesterone, discussed switching to prometrium and transderma l patches. Will rx 200mg prometrium d/t thickened lining. Pt agreeable Endometrium thickened 44 1354432 R93.89 Incidental finding on US 12mmNo VBDiscusse d that at measuremen ts >4mm in a PM EMB would be standard of careEMB today Endocervical polyp 10152 04 N84.1 Seen during examBx today [id number] DO EBONI FARMER [place] [address] [place] [address] 03/25/2025 13:02:31 03/25/2025 13:18:57 Atrophic vaginitis 59793740 N95.2 Pt reports improvemen t and would like to continue. Refills sent History of hormone replacement (HRT) 559497189 Z79.890 03-25-2025Re ports she is doing well with the change to transderma l estrogen and change in type and dose of progestero ne. Pt is aware that our desired timeline for HRT use is 10 years, but pt desires to continue. Pt aware of r/b/aPt has refills x 6 moDue for annual in 02-20-2025Hx of po estradiol and medroxypro gesterone, discussed switching to prometrium and transderma l patches. Pt agreeable Menopausal syndrome 1237 [address] N95.9 [id number] DO EBONI FARMER [place] [address] [place] [address] 08/21/2025 12:41:23 08/21/2025 13:48:10 Atrophic vaginitis 95608775 N95.2 Pt reports improvemen t and would like to continue. Refills sent History of hormone replacement (HRT) 657760039 Z79.890 Reports she is doing well with the change to transderma l estrogen and change in type and dose of progestero ne. Pt is aware that our desired timeline for HRT use is 10 years, but pt desires to continue. Pt aware of r/b/a Reduced libido 2937392 R 68.82 55349311 Gynecologi c examination 02135323 Z01.419 173544 Pap smear no longer indicatedD eclines STI screenMamm o orderedDEX A UTDRTO 1 yr WWE Screening mammography 24 213242 Z12.31 [id number] Health Concerns Section Related Observation LastModified by Organization Detai ls LastModified Time None Recorded Concern Status LastModified by Organization Details LastModified Time None Recorded Advance Directives Directive None Recorded Payers Insurance Date Sequence Insurance Name Policy Number Policy Harrington Covered Member ID Harrington Member ID Guarantor Name 08/18/2025 1 MEDICARE-[employer] (MEDICARE) [place] [id number] Casi Mills 02/21/2025 2 [place] [employer] [place] [employer] (MEDICARE SUPPLEMENT) [id number] Casi Mills [id number] Casi Mills 03/20/2025 2 [employer] (MEDICARE SUPPLEMENT) [place] [id number] Casi [place] Notes Date Note Type Note Provider Name and Address Organization Details Recorded Time 4 text/html 74 year old female presents today for annual WWElast PAP: 08/18/23: negative with negative HPV co testingdenies any history of abnormal PAPsmenopause: any PMB?HRT: estradiol 0.5 mg tablet and medroxyprogesterone 2.5 mg: - will need negative mammogram on record prior to refillsCompound Testosterone 0.25 mg /0.5ml ) per Dr. Leavitt last mammogram: per patient reports: 2022 screening mammogram: negative - completed at [facility] colon screening: none on record: per patient report 4 years ago : negative : repeat due July 2025. dexa: none on record: per patient report completed at [facility] 2022 family history: MGM and maternal aunts/uncles with colon cancerdenies family history of breast, uterine or ovarian cancer patient participating in [facility] ovarian cancer screening - last appointment January 2024 JERALD CRISTOBAL, MAPPING PILOT [address] [place], [address], [facility] 08/20/2024 14:38:38 5 text/html ROS as noted in the HPI 74 yo here for incidental finding of thickened EMS. Pt is enrolled in ov ca screening program at . She had a recent US which showed 12mm EMS. Pt informed to follow up with distribution center associate. Pt is on HRT. Has no vaginal bleeding. CASSY NOGUEIRA X, DO [address] [place], [address], [facility] 02/13/2025 13:36:17 5 text/html ROS as noted in the HPI 74 yo here for EMB. No new questions or concerns. No VB. CASSY NOGUEIRA X, DO [address] [place], [address], [facility] 03/25/2025 13:04:29 5 text/html ROS as noted in the HPI 74 yo here for med check and follow up s/p EMB. Pt states she did have bleeding after EMB but it has now stopped. She is feeling well. Feels the vaginal estrogen is working and would like to continue. CASSY NOGUEIRA X, DO [address] [place], [address], [facility] 03/25/2025 13:36:44 5 text/html ROS as noted in the HPI Patient is in office today for annual exam. she denies fever, chills, nausea, vomiting, SOB, CP, hematuria, dysuria, problems with intercourse, hot flashes, night sweats, vaginal dryness on ROS. No bleeding, spotting, or discharge noted. Estrogen replacement therapy: transdermal Last Pap smear/HPV testin NILM HPV neg History of abnormal Pap smear: no Last mammogram: 2023 at [facility] Last Colonoscopy: UTD DEXA at outside hospital PMH: reviewed PSH: reviewed allergies and meds reviewed CASSY NOGUEIRA X, DO [address] [place], [address], [facility] 08/21/2025 17:13:10 OBGyn Episode No OBEpisode recorded.
== END 2025-09-04 23:59 | disposition home or self-care (01) ==
LOC: RAD 14:35
PROVIDERS: PCP Internal Medicine; Visit Provider Student in an Organized Health Care Education/Training Program
DX: Z12.31 Encounter for screening mammogram for malignant neoplasm of breast (principal); R92.343 Mammographic extreme density, bilateral breasts
CPT/HCPCS: 77063; 77067